=== PATIENT | female | born 1960 | race Caucasian/White ===

== ENCOUNTER 2016-08-29 13:50 | Emergency (ER) | payer OTHER ==
[~2016-08-29] VITALS: Ht 177.8 cm; Wt 109.1 kg
[2016-08-29 13:53] VITALS: BP 187/94; PULSE 89; RESP 22; TEMP 97.9; O2SAT 98
--- NOTE | 2016-08-29 15:47 | PD ---
HPI Chief Complaint: Back/ Neck Pain or Injury Time Seen by Provider: 15:35 Travel History International Travel<30 days: No Contact w/Intl Traveler<30days: No Traveled to known affect area: No History of Present Illness HPI 56-year-old female came to the emergency room with history of lower back pain. This is an acute on chronic back pain. Patient has history of low back pain and goes to pain management. She says that it has started to act up for past few months. She's been getting epidural shots from her pain management doctor in [place]. She is down here with her to spend the winter. However over the past 4 days the pain got really worse. She went to a chiropractor today who did not want to touch her and asked her to come to the emergency room. No history of bowel or bladder incontinence over the past 2 days. She says the pain radiates down her left leg up to the ankle. No history of fall. There was history of lifting heavy weight lately. Today the pain was so bad that she was unable to drive the car. She asked another person to drive her to the emergency room. She was little hypertensive at triage. She looks uncomfortable. [facility] Past Medical History Narrative Medical List of her past medical, surgical, social and family history was reviewed from the nursing note. Social History Tobacco Use: Yes Allergies-Medications (Allergen,Severity, Reaction): Coded Allergies: No Known Allergies (Unverified , 08/29/16) Comments No known allergies. Reported Meds & Prescriptions Reported Meds & Active Scripts Active Medrol Dosepak (Methylprednisolone) 4 Mg Dspk 4 Mg PO DIRECTED Per Pharmacist direction Flexeril (Cyclobenzaprine HCl) 7.5 Mg Tab 7.5 Mg PO TID Naprosyn (Naproxen) 250 Mg Tab 250 Mg PO BID Reported [place] Thyroid (Thyroid) 60 Mg Tab 60 Mg PO DAILY Synthroid (Levothyroxine Sodium) 137 Mcg Tab 137 Mcg PO DAILY Crestor (Rosuvastatin Calcium) 5 Mg Tab 5 Mg PO DAILY Benicar (Olmesartan) 5 Mg Tab 5 Mg PO DAILY Narrative Medication Awaiting for the nurse to do a medical consultation. Review of Systems Except as stated in HPI: all other systems reviewed are Neg Physical Exam Narrative GENERAL: Awake, alert, obese, moderate distress, anxious SKIN: Warm and dry. HEAD: Atraumatic. Normocephalic. EYES: Pupils equal and round. No scleral icterus. No injection or drainage. ENT: No nasal bleeding or discharge. Mucous membranes pink and moist. NECK: Trachea midline. No JVD. CARDIOVASCULAR: Regular rate and rhythm. No murmur appreciated. RESPIRATORY: No accessory muscle use. Clear to auscultation. Breath sounds equal bilaterally. GASTROINTESTINAL: Abdomen soft, non-tender, nondistended. Hepatic and splenic margins not palpable. MUSCULOSKELETAL: No obvious deformities. No clubbing. No cyanosis. No edema. Paraspinal muscle spasm NEUROLOGICAL: Awake and alert. No obvious cranial nerve deficits. Motor grossly within normal limits. Normal speech. Rectal tone intact PSYCHIATRIC: Appropriate mood and affect; insight and judgment normal. Data Data Last Documented VS Vital Signs Date Time Temp Pulse Resp B/P Pulse Ox O2 Delivery O2 Flow Rate FiO2 08/29/16 18:40 75 18 175/80 100 08/29/16 13:53 97.9 Orders Hydromorphone Pf Inj (Dilaudid Pf Inj) (08/29/16 16:00) Orphenadrine Inj (Norflex Inj) (08/29/16 16:00) Ketorolac Inj (Toradol Inj) (08/29/16 16:00) MDM Medical Decision Making Medical Screen Exam Complete: Yes Emergency Medical Condition: Yes Medical Record Reviewed: Yes Differential Diagnosis Lumbar radiculopathy, cauda equina, spinal stenosis Narrative Course 4:16 PM patient is not suffering from any cord compression right now. Quite possibly this is lumbar radiculopathy. I've ordered IM Dilaudid, ketorolac and Norflex for her. Once her pain is controlled she will be ambulated. I have asked her to follow up with her pain management doctor. She says she does not go back to [place] for another 2 or 3 months. I will refer her to the neurosurgeon here and she can contact as an outpatient 5:42 PM patient says that her pain is down from 9-4 out of 10. She ambulated few steps. I will discharge her home with prescriptions. Procedures EKG Prior to Arrival: No Diagnosis Primary Impression: Lumbar radiculopathy Additional Impression: Acute exacerbation of chronic low back pain Referrals: Aram Alva MD 2 days Additional Instructions: Please return to the ER if the condition worsens or any other new concerns. Otherwise follow-up with the neurosurgeon whose name and number been given to you. Take the medications as per the prescription direction. Do not drive or operate heavy machinery while you are on the medication since they will make you groggy. Med/Other Pt SpecificInfo: Prescription(s) given Scripts Methylprednisolone Dosepak (Medrol Dosepak)4 Mg Dspk4 Mg PO DIRECTED #1 DSPK Ref 0 Per Pharmacist direction Prov:David Chairez MD 08/29/16 Cyclobenzaprine (Flexeril)7.5 Mg Tab7.5 Mg PO TID #30 TAB Ref 0 Prov:David Chairez MD 08/29/16 Naproxen (Naprosyn)250 Mg Qeu617 Mg PO BID #60 TAB Ref 0 Prov:David Chairez MD 08/29/16 Disposition: 01 DISCHARGE HOME Condition: Stable David Chairez MD Aug 29, 2016 15:47
[2016-08-29] MEDS ORDERED: KETOROLAC TROMETHAMINE 60 MG/2 ML (IM) VIAL IM ONE (16:00)
[2016-08-29] MEDS ORDERED: HYDROmorphone HCL PF 1 MG/ML VIAL IM ONE (16:00)
[2016-08-29] MEDS ORDERED: ORPHENADRINE INJ 60 MG/2 ML AMP IM ONE (16:00)
[2016-08-29] MEDS ORDERED: LEVO-86 PO (16:44)
[2016-08-29] MEDS ORDERED: BENI5TAB4 PO (16:44)
[2016-08-29] MEDS ORDERED: ARMO60TA PO (16:44)
[2016-08-29] MEDS ORDERED: ROSU5 PO (16:44)
[2016-08-29] MEDS ORDERED: MEDR4PAK PO (17:45)
[2016-08-29] MEDS ORDERED: CYCL7.5T33 PO (17:45)
[2016-08-29] MEDS ORDERED: NAPR250T57 PO (17:45)
[2016-08-29 18:40] VITALS: BP 175/80
== END 2016-08-29 18:45 | disposition home or self-care (01) ==
LOC: NEPA 13:50
DX: M54.16 Radiculopathy, lumbar region (principal); Z72.0 Tobacco use
CPT/HCPCS: 96372; 99283; J1170; J1885; J2360